=== PATIENT | female | born 1995 | race Caucasian/White ===

== ENCOUNTER 2017-04-05 15:38 | Inpatient (IN) | payer OTHER ==
[~2017-04-05] VITALS: Ht 157.5 cm; Wt 86.0 kg
[2017-04-05 19:15] VITALS: BP 118/65; RESP 18
[2017-04-05 21:16] VITALS: Ht 157.5 cm; Wt 86.0 kg
[2017-04-05 21:17] VITALS: BP 120/60; PULSE 70; RESP 18
[2017-04-05] MEDS ORDERED: morphine 2 MG INJ IV PRN (23:30)
[2017-04-05] MEDS ORDERED: HYDROCODONE/APAP (5/325) TAB PO PRN ×2 (23:30)
[2017-04-05] MEDS ORDERED: ONDANSETRON 4 MG INJ IV PRN (23:30)
[2017-04-06] MEDS: DEXTROSE 5%-0.9% NACL 1,000 ML IV SCH ×2 (01:51→20:00)
[2017-04-06 05:15] LABS: ADD SCAN DIFF NO
[2017-04-06 05:28] LABS: BASOPHILS % 0.4 % (0.0-2.0); EOSINOPHILS % 0.1 % (0.0-7.0); HEMATOCRIT 39.7 % (37.0-47.0); HEMOGLOBIN 12.6 g/dl (12.0-16.0); LYMPHOCYTES # 1.8 10^3/ul (0.8-2.9); LYMPHOCYTES % 26.3 % (15.0-51.0); MEAN CORPUSCULAR HEMOGLOBIN 24.9 pg (29.0-33.0); MEAN CORPUSCULAR HGB CONC 31.7 g/dl (32.0-37.0); MEAN CORPUSCULAR VOLUME 78.5 fl (82.0-101.0); MEAN PLATELET VOLUME 11.9 fl (7.4-10.4); MONOCYTE # 0.5 10^3/ul (0.3-0.9); MONOCYTES % 8.1 % (0.0-11.0); NEUTROPHIL # 4.3 10^3/ul (1.6-7.5); NEUTROPHILS % 64.7 % (39.0-77.0); PLATELET COUNT 249 10^3/UL (140-415); RED BLOOD COUNT 5.06 10^6/ul (4.20-5.40); RED CELL DISTRIBUTION WIDTH 16.2 % (11.5-14.5); WHITE BLOOD COUNT 6.7 10^3/ul (4.8-10.8)
[2017-04-06 06:21] LABS: ALBUMIN 3.5 g/dl (3.3-4.9); POTASSIUM 3.5 mmol/L (3.5-5.1)
[2017-04-06 06:23] LABS: CREATININE 0.64 mg/dl (0.44-1.00)
[2017-04-06 06:24] LABS: ALBUMIN/GLOBULIN RATIO 0.97; BILIRUBIN,DIRECT 2.8 mg/dl (0.00-0.20); BILIRUBIN,INDIRECT 1.1 mg/dl (0-1.1); BILIRUBIN,TOTAL 3.9 mg/dl (0.2-1.3); CALCIUM 8.7 mg/dl (8.4-10.2); TOTAL PROTEIN 7.1 g/dl (6.1-8.1)
[2017-04-06 07:58] VITALS: BP 111/60; RESP 20
[2017-04-06] MEDS: CEFTRIAXONE 1 GM/50 ML (PMX) 50 ML IVPB SCH (13:08)
--- NOTE | 2017-04-06 15:05 | HP ---
Date/Time of Note Date/Time of Note DATE: 04/06/17 TIME: 14:57 Assessment/Plan VTE Prophylaxis VTE Prophylaxis Intervention: ambulation Lines/Catheters IV [facility] Saline [facility] Assessment/Plan Chief Complaint/Hosp Course 1. Chololithiasis 2. Overweight Problems: Assessment/Plan 1. ERCP by dr Hoffman 2. NPO. IV hydration HPI/ROS Admit Date/Time Admit Date/Time April 05, 2017 at 19:15 Hx of Present Illness 22 years old female underwent laparoscopic cholecystectomy on 03/21/17 in [facility]. After the surgery she reported persistent abdominal pain and was seen there again. Later she was transferred to [facility]. There ERCP were performed with unsuccessful stone remocal. Pt was transferred to [facility], where she is currently admitted ROS Constitutional: no complaints Eyes: no complaints ENT: no complaints Respiratory: no complaints Cardiovascular: no complaints Gastrointestinal: blood, diarrhea, no complaints, pain, No constipation, No decreased appetite, No flatus, No nausea, No other, No passing stool, No vomiting Genitourinary: no complaints Musculoskeletal: no complaints Skin: no complaints Neurologic: no complaints Endocrine: no complaints Lymphatic: no complaints Psychological: no complaints PMH/Family/Social Past Medical History Medical History: no pertinent history Past Surgical History Past Surgical Hx: other (cholecystectomy 03/21/2017, ERCP recent) Family History Significant Family History: no pertinent family hx Social History Alcohol Use: none Smoking Status: Never smoker Drug Use: none Exam/Review of Systems Vital Signs Vitals Vital Signs Date Time Temp Pulse Resp B/P Pulse Ox O2 Delivery O2 Flow Rate FiO2 04/06/17 07:58 97.9 61 20 111/60 98 04/05/17 21:17 Room Air Intake and Output 04/05/17 04/05/17 04/06/17 15:00 23:00 07:00 Intake Total 475 ml Output Total 200 ml 900 ml Balance -200 ml -425 ml Exam Constitutional: alert Psych: no complaints Head: normocephalic Eyes: nl conjunctiva ENMT: nl external ears & nose Neck: supple Respiratory: clear to auscultation Cardiovascular: regular rate and rhythm Gastrointestinal: bowel sounds (present), hepatomegaly, soft, surgical scars, No ascites, No distended, No firm, No mass, No nl liver, spleen, No non- tender, No other, No rebound or guarding, No splenomegaly, No tender Genitourinary - Female: nl adnexae Musculoskeletal: nl extremities to inspection Extremities: normal pulses Labs Result Diagram: 04/06/1743204/06/17432 Medications Medications Current Medications Acetaminophen/ Hydrocodone Bitart ([place] (5/325)) 1 tab Q4H PRN PO PAIN 5-7/10 ; Start 04/05/17 at 23:30 Acetaminophen/ Hydrocodone Bitart ([place] (5/325)) 2 tab Q4H PRN PO PAIN 7-9/10 ; Start 04/05/17 at 23:30 Morphine Sulfate (morphine) 2 mg Q4H PRN IV SEVERE PAIN; Start 04/05/17 at 23: 30 Ondansetron HCl 4 mg 4 mg Q4H PRN IV NAUSEA AND/OR VOMITING Last administered on 04/06/17 13:13; Admin Dose 4 MG; Start 04/05/17 at 23:30 Ceftriaxone Sodium 50 ml @ 100 mls/hr Q24H IVPB Last administered on 13:08; Admin Dose 100 MLS/HR; Start 04/06/17 at 13:00; Stop 04/09/17 at 12: 59 Dextrose/Sodium Chloride (D5-NS) 1,000 ml @ 50 mls/hr Q20H IV Last administered on 04/06/17 01:51; Admin Dose 50 MLS/HR; Start 04/06/17 at 00:00 JOE NAIR April 06, 2017 15:05
--- NOTE | 2017-04-06 17:58 | CONS ---
DATE OF ADMISSION: 04/05/2017 DATE OF CONSULTATION: HISTORY OF PRESENT ILLNESS: The patient is a 22-year-old female admitted initially at [facility] and underwent a sphincterotomy. The patient was found to have bile duct stones subse quently transferred to [facility] in [facility]. The patient was having abdomina l pain for the last 3 days prior to going to the ER associated at times with nausea and vomiting. T he patient had an MRCP done there, a diagnosis of bile duct stone entertained which was 5 to 6 mm, b ilirubin was 4 to 5. She underwent ERCP by the general car yard supervisor, precut was done but could not ca nnulate the bile duct so transferred to this facility for further management. The patient has inter mittent abdominal pain. No nausea, no vomiting, no fever, no chills. PAST MEDICAL HISTORY: Laparoscopic cholecystectomy 2 weeks ago, mild anemia, BMI of 34.3. ALLERGIES: NO KNOWN DRUG ALLERGIES. FAMILY HISTORY: Nothing contributory. SOCIAL HISTORY: Does not smoke or drink. REVIEW OF SYSTEMS: Negative. PHYSICAL EXAMINATION VITALS: Stable. ABDOMEN: Benign. CARDIOVASCULAR: No murmur, gallop or click. LUNGS: Clear. CENTRAL NERVOUS SYSTEM: Grossly within normal limits. Total bilirubin 3.9, alkaline phosphatase 450. WBC 6.7, hematocrit 39. IMPRESSION: 1. Bile duct stone, failed ERCP at [facility]. 2. Obstructive jaundice. 3. Status post laparoscopic cholecystectomy. PLAN: To continue antibiotic. We will proceed with ERCP tomorrow. Dictated By: NICKY BETTS/HETAL Conf#: [id number] DID#: [id number]
[2017-04-06 19:15] VITALS: BP 114/65; RESP 18
[2017-04-07] VITALS (11 sets, daily range): BP systolic 105–137; BP diastolic 55–94; PULSE 60–106; RESP 16–24
[2017-04-07] MEDS: DEXTROSE 5%-0.9% NACL 1,000 ML IV SCH (01:04)
[2017-04-07 05:10] LABS: ADD SCAN DIFF NO
[2017-04-07 05:12] LABS: BASOPHILS % 0.6 % (0.0-2.0); EOSINOPHILS # 0.1 10^3/ul (0.0-0.5); HEMATOCRIT 41.3 % (37.0-47.0); LYMPHOCYTES # 1.8 10^3/ul (0.8-2.9); LYMPHOCYTES % 25.3 % (15.0-51.0); MEAN CORPUSCULAR HEMOGLOBIN 24.7 pg (29.0-33.0); MEAN CORPUSCULAR HGB CONC 31.5 g/dl (32.0-37.0); MEAN CORPUSCULAR VOLUME 78.4 fl (82.0-101.0); MEAN PLATELET VOLUME 11.9 fl (7.4-10.4); MONOCYTE # 0.7 10^3/ul (0.3-0.9); MONOCYTES % 9.3 % (0.0-11.0); NEUTROPHIL # 4.5 10^3/ul (1.6-7.5); NEUTROPHILS % 63.5 % (39.0-77.0); PLATELET COUNT 225 10^3/UL (140-415); RED BLOOD COUNT 5.27 10^6/ul (4.20-5.40); RED CELL DISTRIBUTION WIDTH 16.3 % (11.5-14.5); WHITE BLOOD COUNT 7.1 10^3/ul (4.8-10.8)
[2017-04-07 05:31] LABS: PROTIME 13.2 Sec (12.2-14.2)
[2017-04-07 05:51] LABS: CALCIUM 9.3 mg/dl (8.4-10.2); CREATININE 0.71 mg/dl (0.44-1.00); POTASSIUM 4.2 mmol/L (3.5-5.1)
[2017-04-07] MEDS ORDERED: SUCCINYLCHOLINE CHLORIDE 100 MG/5 ML SYG IV ONE (07:00)
[2017-04-07] MEDS ORDERED: PROPOFOL 20 ML ONE (12:32)
[2017-04-07] MEDS ORDERED: MIDAZOLAM 1 MG/ML 2 ML INJ ONE (12:32)
[2017-04-07] MEDS ORDERED: ROCURONIUM 50 MG INJ ONE (12:32)
[2017-04-07] MEDS ORDERED: FENTAnyl 50 MCG/ML VIAL ONE (12:32)
[2017-04-07] MEDS ORDERED: INDOMETHACIN 50 MG SUPP PR ONE ×2 (12:36→13:00)
[2017-04-07] MEDS ORDERED: IOHEXOL 300MG/ML 30 ML BTL ONE (12:36)
[2017-04-07] MEDS: CEFTRIAXONE 1 GM/50 ML (PMX) 50 ML IVPB SCH (13:00)
[2017-04-07] MEDS ORDERED: NEOSTIGMINE 3 MG/3 ML SYRINGE ONE (13:14)
[2017-04-07] MEDS ORDERED: ONDANSETRON 4 MG INJ ONE (13:14)
[2017-04-07] MEDS ORDERED: METOCLOPRAMIDE 10 MG INJ ONE (13:14)
[2017-04-07] MEDS ORDERED: GLYCOPYRROLATE 0.4 MG INJ ONE (13:14)
[2017-04-07] MEDS ORDERED: KETOROLAC 30 MG INJ ONE (13:14)
[2017-04-07] MEDS ORDERED: DEXAMETHASONE 4 MG/ML 1 ML INJ ONE (13:14)
[2017-04-07] MEDS ORDERED: DIPHENHYDRAMINE 50 MG INJ IV PRN (13:30)
[2017-04-07] MEDS ORDERED: HYDROmorphONE (0.2 MG/ML) 10ML SYG IV PRN ×3 (13:30)
[2017-04-07] MEDS ORDERED: hydrALAzine 20 MG INJ IV PRN (13:30)
[2017-04-07] MEDS ORDERED: LABETALOL HCL 20MG INJ IV PRN (13:30)
[2017-04-07] MEDS ORDERED: METOCLOPRAMIDE 10 MG INJ IV PRN (13:30)
[2017-04-07] MEDS ORDERED: ONDANSETRON 4 MG INJ IV PRN (13:30)
[2017-04-07] MEDS ORDERED: MEPERIDINE 25 MG INJ IV PRN (13:30)
[2017-04-07] MEDS ORDERED: morphine (1 MG/ML) 10ML SYRINGE IV PRN ×3 (13:30)
[2017-04-07] MEDS ORDERED: EPHEDrine SULFATE 50 MG/5 ML SYG IV PRN (13:30)
[2017-04-07] MEDS: LACTATED RINGER'S 1,000 ML IV SCH ×2 (14:35→20:10)
--- NOTE | 2017-04-07 16:25 | PDOCDIS ---
Discharge Instructions CONDITION Patient Condition: Stable HOME CARE INSTRUCTIONS: Special Diet: npo ACTIVITY: Activity Restrictions: Slowly Increase Activity FOLLOW UP/APPOINTMENTS Appointments f/u own pcp [address] acuña 1 wk JAYSON ALLEN MD April 07, 2017 16:25
[2017-04-07] MEDS ORDERED: PANT40TA3 PO (16:28)
[2017-04-07] MEDS ORDERED: HYDR-3498 PO (16:28)
[2017-04-07 16:54] LABS: ALBUMIN 3.9 g/dl (3.3-4.9)
[2017-04-07 16:55] LABS: POTASSIUM 4.7 mmol/L (3.5-5.1)
--- NOTE | 2017-04-07 16:56 | PN ---
Date/Time of Note Date/Time of Note DATE: 04/07/17 TIME: 16:55 Assessment/Plan VTE Prophylaxis VTE Prophylaxis Intervention: other Lines/Catheters IV Catheter Type (from Nrsg): Peripheral IV Assessment/Plan Chief Complaint/Hosp Course cbd stone abd pain plan ercp per gi Problems: Subjective 24 Hr Interval Summary Respiratory: no complaints Gastrointestinal: no complaints Exam/Review of Systems Vital Signs Vitals Vital Signs Date Time Temp Pulse Resp B/P Pulse Ox O2 Delivery O2 Flow Rate FiO2 04/07/17 14:45 98.3 60 20 116/55 100 Room Air 04/07/17 13:38 10.0 Intake and Output 04/06/17 04/06/17 04/07/17 15:00 23:00 07:00 Intake Total 50 ml 1700 ml 775 ml Balance 50 ml 1700 ml 775 ml Exam Respiratory: clear to auscultation Cardiovascular: regular rate and rhythm Gastrointestinal: soft Results Result Diagram: 04/07/17 0435 04/07/17 0435 Results 24 hrs Laboratory Tests Test 04/07/17 04:35 White Blood Count 7.1 Red Blood Count 5.27 Hemoglobin 13.0 Hematocrit 41.3 Mean Corpuscular Volume 78.4 L Mean Corpuscular Hemoglobin 24.7 L Mean Corpuscular Hemoglobin Concent 31.5 L Red Cell Distribution Width 16.3 H Platelet Count 225 Mean Platelet Volume 11.9 H Neutrophils % 63.5 Lymphocytes % 25.3 Monocytes % 9.3 Eosinophils % 1.0 Basophils % 0.6 Nucleated Red Blood Cells % 0.0 Neutrophils # 4.5 Lymphocytes # 1.8 Monocytes # 0.7 Eosinophils # 0.1 Basophils # 0.0 Nucleated Red Blood Cells # 0.0 Prothrombin Time 13.2 Prothrombin Time Ratio 1.0 INR International Normalized Ratio 1.00 Sodium Level 139 Potassium Level 4.2 Chloride Level 108 Carbon Dioxide Level 24 Anion Gap 11 Blood Urea Nitrogen 7 Creatinine 0.71 Glucose Level 116 Calcium Level 9.3 Serum HCG, Qualitative NEGATIVE Medications Medications Current Medications Acetaminophen/ Hydrocodone Bitart ([place] (5/325)) 1 tab Q4H PRN PO PAIN 5-710 ; Start 04/05/17 at 23:30 Acetaminophen/ Hydrocodone Bitart ([place] (5/325)) 2 tab Q4H PRN PO PAIN 7-910 ; Start 04/05/17 at 23:30 Morphine Sulfate (morphine) 2 mg Q4H PRN IV SEVERE PAIN; Start 04/05/17 at 23: 30 Ondansetron HCl 4 mg 4 mg Q4H PRN IV NAUSEA AND/OR VOMITING Last administered on 04/06/17 13:13; Admin Dose 4 MG; Start 04/05/17 at 23:30 Ceftriaxone Sodium 50 ml @ 100 mls/hr Q24H IVPB Last administered on 13:08; Admin Dose 100 MLS/HR; Start 04/06/17 at 13:00; Stop 04/09/17 at 12: 59 Lactated Ringer's (Lr) 1,000 ml @ 150 mls/hr Q6H40M IV Last administered on 14:35; Admin Dose 150 MLS/HR; Start 04/07/17 at 13:30 JAYSON ALLEN MD April 07, 2017 16:56
[2017-04-07 16:57] LABS: ALBUMIN/GLOBULIN RATIO 0.97; CALCIUM 9.7 mg/dl (8.4-10.2); CREATININE 0.74 mg/dl (0.44-1.00); TOTAL PROTEIN 7.9 g/dl (6.1-8.1)
--- NOTE | 2017-04-07 20:09 | GILP ---
DATE OF PROCEDURE: PROCEDURE PERFORMED: ERCP with sphincterotomy, removal of the stone. INDICATION: A 22-year-old female undergoing this procedure for the removal of the stone. Stone was impacted and previous organ teacher did a precut with a needle knife and could not take out th e stone, so patient was transferred to this facility for the second look ERCP and removal of the sto ne. INFORMED CONSENT: The risks of the procedure, related and unrelated complications, anesthetic risks , alternatives were thoroughly discussed with the patient, which she understood very well and gave i nformed consent. DESCRIPTION OF PROCEDURE: The patient was brought to the OR room #4, intubated by the anesthesiolog ist, placed in a prone position, was given Indocin suppository. ERCP scope passed with much ease in to stomach. She had a U-shaped stomach. Scope was advanced further down into the duodenum. Ampull a was identified. The ampulla definitely appeared distorted because of the precut. There was only 1 opening seen, so initially tried to cannulate that opening. This opening led to the pancreatic du ct. We left the wire there and poked the ampulla and immediately there was another so-called openin g, which took us straight into the bile duct. The bile duct was selectively cannulated. Cholangiog kendall done. It appeared dilated. No dye was coming out. At this point, the large sphincterotomy don e and 12 mm balloon was used to sweep the bile duct. Initially, a small cholesterol stone came out and after that the large 2 cm cholesterol stone came out. Bile duct was swept 4 to 5 times until no stone was left behind. Occlusive cholangiogram obtained. No stone was identified, good drainage e stablished and the opening was pretty big, so decided not to put a stent. Scope was removed with ex cellent patient tolerance. IMPRESSION: 1. Large sphincterotomy done. 2. Two stones removed. One was cholesterol cauliflower in appearance, 2 cm in diameter. 3. Small cholesterol stone also removed, which was in the ampulla. 4. Good drainage established. PLAN: Keep n.p.o. for a few hours. If the patient has no symptoms, then we will resume feeding. T he patient should be on Ringer lactated at 150 mL per hour. If the patient is asymptomatic, perhaps we can discharge the patient home. Dictated By: NICKY BETTS/NTS Conf#: [id number] DID#: [id number] CC: NICKY LANCASTER MD; JAYSON ALLEN MD;*EndCC*
[2017-04-08] VITALS: BP 113/62; RESP 16
[2017-04-08] MEDS: LACTATED RINGER'S 1,000 ML IV SCH ×2 (02:50→08:49)
[2017-04-08 06:40] LABS: ALBUMIN 3.7 g/dl (3.3-4.9); ALBUMIN/GLOBULIN RATIO 0.97; BILIRUBIN,INDIRECT 1.1 mg/dl (0-1.1); BILIRUBIN,TOTAL 1.1 mg/dl (0.2-1.3); CALCIUM 9.3 mg/dl (8.4-10.2); CREATININE 0.64 mg/dl (0.44-1.00); POTASSIUM 4.3 mmol/L (3.5-5.1); TOTAL PROTEIN 7.5 g/dl (6.1-8.1)
[2017-04-08 06:44] VITALS: BP 112/63; PULSE 70; RESP 19
--- NOTE | 2017-04-08 07:47 | RADRPT ---
PROCEDURE: Intraoperative imaging for ERCP with fluoroscopy. CLINICAL INDICATION: Right upper quadrant pain. Intraoperative. TECHNIQUE: 3 images of the right upper quadrant of the abdomen were obtained in the operating room with an image intensifier. No radiologist was in attendance. 6.5 seconds of fluoroscopy time was used. COMPARISON: No prior study is available for comparison. FINDINGS: Images demonstrate the endoscope in position and contrast injected into the common bile duct. Surgi crissy clips are present from previous cholecystectomy. IMPRESSION: 1. ERCP as described above. RPTAT: QQ .Dylan Zheng MD, MD Date Time Electronically viewed and signed by .Dylan Zheng MD, MD on 04/08/2017 07:47 .R/
[2017-04-08 08:05] VITALS: BP 121/57; RESP 18
--- NOTE | 2017-04-08 17:43 | QN ---
Documentation Comment [id number] JAYSON ALLEN MD April 08, 2017 17:43
--- NOTE | 2017-04-09 06:28 | DS ---
DATE OF ADMISSION: 04/05/2017 DATE OF DISCHARGE: 04/08/2017 HOSPITAL COURSE: The patient is a 22-year-old female who was admitted with abdominal pain, noted to have common bile duct stone, was seen by Dr. Whitaker in consultation, underwent ERCP. The patient h ad a large sphincterectomy done, 2 stones removed; one was cholesterol cauliflower in appearance, 2 cm in diameter. Small cholesterol stone also removed. Good drainage established, and the patient w as given IV fluids and stabilized. The patient has abnormal LFT postprocedure. Dr. Whitaker is aware of that and cleared the patient to be discharged. DISCHARGE DIAGNOSES: Include common bile duct stones, status post ERCP and sphincterectomy. Other diagnoses include a history of cholecystectomy. The patient has abnormal LFTs, resolving. DISCHARGE MEDICATIONS: The patient is to continue home medication of [place] and Protonix. FOLLOWUP: Follow up with own PCP and Dr. Whitaker as an outpatient. Dictated By: JAYSON ALLEN MD BS/NTS Conf#: [id number] DID#: [id number]
--- NOTE | 2017-04-11 11:27 | QN ---
Documentation Comment pt stable at time of dc home JAYSON ALLEN MD April 11, 2017 11:27
== END 2017-04-08 10:25 | disposition home or self-care (01) | DRG 446 ==
LOC: MS1 19:15
PROVIDERS: ADMIT Internal Medicine Nephrology; ATTEND Internal Medicine Nephrology
PROC: 0FC98ZZ Extirpation of Matter from Common Bile Duct, Via Natural or Artificial Opening Endoscopic (ICD-10-PCS; principal; 2017-04-07 12:30)
DX: K80.51 Calculus of bile duct without cholangitis or cholecystitis with obstruction (principal); E66.3 Overweight; K83.1 Obstruction of bile duct; Z90.49 Acquired absence of other specified parts of digestive tract
CPT/HCPCS: 74000; 80048; 80053; 84703; 85025; 85610; C2617; J0696; J1100; J1885; J2250; J2405; J2710; J2765; J3010; J7042; J7120; J7999; Q9967